=== PATIENT | male | born 1965 | race Caucasian/White ===

== ENCOUNTER → 2017-02-14 | Outpatient (CLI) | payer OTHER ==
[~2017-02-14] MED LIST: GADOBUTROL 10 MMOL/10 ML VIAL IV ONE
--- NOTE | 2017-02-14 11:57 | KCIC ---
PROCEDURE MRI study of the chest with and without contrast HISTORY Upper left posterior chest wall mass. Operative report indicated a palpable lipomatosis mass of the posterior left chest wall which was deep to the subcutaneous tissues located within the muscle of the chest wall. TECHNIQUE Pre and post contrast enhanced MRI sequences of the posterior left chest wall were performed in all 3 planes. A total of 8 cc of Gadavist was given intravenously. COMPARISON None available. FINDINGS There is a heterogeneous soft tissue lipomatous mass of the deep posterior left lateral chest wall. This is located deep to this serratus anterior and latissimus dorsi muscles and is located between the ribcage/intercostal muscles and the serratus anterior muscle. The borders of this mass are difficult to measure. However, roughly, this mass measures 11.7 centimeters in vertical dimension and 2.8 centimeters in transverse dimension and 8.9 centimeters in AP dimension. There is plaque-like enhancement of the superior lateral aspect of this mass. There is increased signal in this same area on the T2 weighted images. This area is intermediate in signal intensity as seen on the T1 weighted images in comparison to the rest of the mass which has a more lipomatous appearance. This area measures roughly 8.1 centimeters in AP dimension and 1.4 centimeters in transverse dimension and 5.5 centimeters in greatest vertical dimension. This portion of the mass abuts the anterior surface of the inferior pole of the scapula. However no T1 marrow signal abnormality or cortical erosion or abnormal enhancement of the scapula is seen. There is additional internal septation and fine nodularity of the mass. No abnormal adjacent rib marrow signal or cortical erosion is evident. No left-sided pleural effusion is seen. 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 Electronically signed by: Eb Aguirre MD (Feb 14, 2017 11:55:12)
== END | disposition home or self-care (01) ==
LOC: KCIC MRI 09:01
PROVIDERS: ATTEND Surgery
DX: R22.2 Localized swelling, mass and lump, trunk (principal)
CPT/HCPCS: 71552; A9585